=== PATIENT | male | born 1950 | race Caucasian/White ===

== ENCOUNTER → 2021-03-03 14:46 | Outpatient (BNVA) | payer OTHER, SELFPAY | PROVIDERS: Family Provider Family Medicine; PCP Family Medicine; Visit Provider Nurse Practitioner Family | DX: Z20.822 Contact with and (suspected) exposure to COVID-19 (principal) | CPT/HCPCS: 87635 ==

== ENCOUNTER 2021-03-05 13:00 | Outpatient (CLI) | payer OTHER, SELFPAY ==
[2021-03-05 13:07] VITALS: BP 127/74; PULSE 57; RESP 18; TEMP 36.8; O2SAT 95; BMI 25.7
[2021-03-05 13:23] VITALS: BP 128/78; PULSE 56; RESP 18; TEMP 36.6; O2SAT 96
[2021-03-05 14:27] VITALS: BP 124/77; PULSE 55; RESP 16; TEMP 36.7; O2SAT 93
== END 2021-03-05 13:01 | disposition home or self-care (01) ==
LOC: OPS 13:04
PROVIDERS: PCP Family Medicine; Visit Provider Nurse Practitioner Family
DX: U07.1 COVID-19 (principal)
CPT/HCPCS: 96365

== ENCOUNTER 2023-01-10 07:40 | Inpatient (IN) | payer OTHER, SELFPAY ==
[2023-01-10] VITALS (53 sets, daily range): BP systolic 101–172; BP diastolic 52–98; PULSE 44–62; RESP 12–21; TEMP 36.7–37.1; O2SAT 92–100; BMI 25.7
--- NOTE | 2023-01-10 07:47 | XRR_ITS ---
PROCEDURE INFORMATION: Exam: XR Chest Exam date and time: 01/10/2023 8:23 AM Age: 72 years old Clinical indication: Cough and dyspnea; Additional info: Dyspnea/cough TECHNIQUE: Imaging protocol: Radiologic exam of the chest. Views: 1 view. COMPARISON: No relevant prior studies available. FINDINGS: Lungs: There is a 3 mm radiodense nodule in the inferolateral right lung consistent with a calcified granuloma. There is no consolidation. Pleural spaces: There is no pleural effusion or pneumothorax. Heart/Mediastinum: Cardiomediastinal contours are unremarkable. Bones/joints: There is moderate degenerative disease at the left shoulder. XR/XR chest 1V portable [id number] IMPRESSION: No acute findings.
--- NOTE | 2023-01-10 07:47 | CTR_ITS ---
PROCEDURE INFORMATION: Exam: CT Head Without Contrast Exam date and time: 01/10/2023 8:01 AM Age: 72 years old Clinical indication: Stroke-like symptoms; Speech disturbance; Right upper extremity numbness/paresthesia; Additional info: AMS TECHNIQUE: Imaging protocol: Computed tomography of the head without contrast. Radiation optimization: All CT scans at this facility use at least one of these dose optimization techniques: automated exposure control; mA and/or kV adjustment per patient size (includes targeted exams where dose is matched to clinical indication); or iterative reconstruction. Other technique: STROKE PROTOCOL was implemented. REPORTING DATA: Count of CT and Cardiac NM exams in prior 12 months: This patient has received 0 known CTs and 0 known cardiac nuclear medicine studies in the 12 months prior to the current study. COMPARISON: No relevant prior studies available. RADIATION DOSE METRICS: Total DLP (mGy-cm): 1004.68 FINDINGS: Brain: There is mild diffuse cerebral atrophy. There is a 6 mm focal hypodensity in the superior left cerebellar hemisphere consistent with a chronic lacunar infarct. No significant white matter disease is visible. No sign of acute infarction. There is no acute intracranial hemorrhage. Cerebral ventricles: There is no significant ventricular dilation. The basal cisterns are unremarkable. Paranasal sinuses: The paranasal sinuses are clear. Mastoid air cells: The mastoid air cells are clear. Orbital cavities: There is chronic deformity of the left medial orbital wall. Bones/joints: The calvarium is intact. Soft tissues: The visible extracranial soft tissues are unremarkable. CT/CT head wo con* [id number] IMPRESSION: No acute intracranial abnormality. ASSESSMENT: ASPECTS ([place] Stroke Program Early CT Score) is 10.
[2023-01-10 07:56] LABS: Basophils % 0.6 %; Eosinophils # 0.1 10^3/uL (0.0-0.8); Eosinophils % 1.5 %; Hematocrit 45.5 % (37-53); Lymphocytes # 1.9 10^3/uL (0.8-4.8); Lymphocytes % 36.3 %; Mean Corpuscular HGB Conc 33.6 g/dL (30-55); Mean Corpuscular Hemoglobin 32.3 pg (27-33); Mean Platelet Volume 10.1 fL (7.4-10.4); Monocytes # 0.6 10^3/uL (0.2-0.9); Monocytes % 10.7 %; Neutrophils % 50.7 %; Nucleated Red Blood Cells % 0 %; Platelet Count 268 10^3/cmm (157-399); Red Blood Count 4.74 10^6/uL (3.85-5.65); Red Cell Distribution Width 13.1 % (12.1-15.1); White Blood Count 5.32 10^3/uL (3.29-11.43)
--- NOTE | 2023-01-10 07:59 | ED_ITS ---
HPI - Altered Mental Status General: Chief Complaint: Altered Mental Status Stated Complaint: AMS Time Seen by Provider: 01/10/23 07:46 Course Vital Signs: Vital signs: Vital Signs Pulse Rate 52 L 01/10/23 07:40 Blood Pressure 161/81 01/10/23 07:40 Pulse Oximetry 96 01/10/23 07:40 Oxygen Delivery Me thod Room Air 01/10/23 07:40 MDM - Altered Mental Status Lab Data 01/10/23 07:04 01/10/23 07:04 Laboratory Results WBC 5.32 10^3/uL (3.29-11.43) 01/10/23 07:04 RBC 4.74 10^6/uL (3.85-5.65) 01/10/23 07:04 Hgb 15.30 g/dL (11.27-16.99) 01/10/23 07:04 Hct 45.5 % (37-53) 01/10/23 07:04 MCV 96.0 fl (82-101) 01/10/23 07:04 MCH 32.3 pg (27-33) 01/10/23 07:04 MCHC 33.6 g/dL (30-55) 01/10/23 07:04 RDW 13.1 % (12.1-15.1) 01/10/23 07:04 Plt Count 268 10^3/cmm (157-399) 01/10/23 07:04 MPV 10.1 fL (7.4-10.4) 01/10/23 07:04 Neut % (Auto) 50.7 % 01/10/23 07:04 Lymph % (Auto) 36.3 % 01/10/23 07:04 [place] % (Auto) 10.7 % 01/10/23 07:04 Eos % (Auto) 1.5 % 01/10/23 07:04 Baso % (Auto) 0.6 % 01/10/23 07:04 Neut # (Auto) 2.70 10^3/uL (1.8-7.7) 01/10/23 07:04 Lymph # (Auto) 1.9 10^3/uL (0.8-4.8) 01/10/23 07:04 [place] # (Auto) 0.6 10^3/uL (0.2-0.9) 01/10/23 07:04 Eos # (Auto) 0.1 10^3/uL (0.0-0.8) 01/10/23 07:04 Baso # (Auto) 0.0 10^3/uL (0.0-0.1) 01/10/23 07:04 Nucleated RBC % (auto) 0 % 01/10/23 07:04 Nucleated RBCs # 0.0 /100WBC 01/10/23 07:04 Discharge Plan Discharge Condition: Stable Prescriptions: No Action No Known Home Medications Referrals: Lew Burk [Primary Care Provider] - Patient Instructions: Altered Mental Status (ED), Alcohol Intoxication (ED), Benzodiazepine Use Disorder (ED), Concussion (ED), Dementia (ED), Subarachnoid Hemorrhage (GEN), Hyponatremia (ED), Non-diabetic Hypoglycemia (ED), Hypoglycemia in a Person with Diabetes (ED) Coding Level of Care Code ED Rod Greaser for Minoo Luo
--- NOTE | 2023-01-10 08:01 | W.ED.NEUROSD ---
HPI - Neuro Symptoms/Deficit General: Chief Complaint: Altered Mental Status Stated Complaint: AMS Time Seen by Provider: 01/10/23 07:46 Source: patient History of Present Illness: 72-year-old male presents to the emergency room via EMS with a report of altered mental status. When I came to see the patient he is having dysarthria and mild aphasia. He reports that he got up in his normal began his normal morning activities and then be having difficulty with speech around 615. He presented here at 740. He is not on anticoagulants. No recent surgeries. Shortly after entering the room and beginning to evaluate the patient a stroke alert was called based on initial bedside observations. Time: 07:40 Last Observed Normal: 06:15 Location: speech Severity: moderate Quality: weak Relieving factors: none Exacerbating factors: none Context: sudden onset On Anticoagulants: No Associated symptoms: Deny chest pain, cough, diaphoresis, fevers/chills, headache(s), anorexia, malaise, nausea, seizures, short of breath, syncope, tingling, vertigo, vomiting or weakness Treatments Prior to Arrival: none Review of Systems Const: Denies: malaise or diaphoresis Card: Denies: chest pain or syncope Resp: Denies: dyspnea GI: Denies: nausea or vomiting : Denies: dysuria, urinary frequency or urinary urgency Musc: Denies: neck pain or back pain Skin/Breast: Denies: rash Neuro: Denies: headache(s) or vertigo NIH stroke score NIHSS: Level Of Consciousness - 1a: 0 Level Of Consciousness Questions - 1b: Both Correct Level Of Consciousness Commands - 1c: Both Correct Best Gaze - 2: Normal Visual [place] - 3: No Visual Loss Facial Palsy - 4: Normal Motor Arm Right - 5: Drift (Subtle) Motor Arm Left - 5: No Drift Motor Leg Right - 6: Drift (Mild compared to left) Motor Leg Left - 6: No Drift Limb Ataxia - 7: Present In Two Limbs Sensory - 8: Normal Best Language - 9: Mild/Moderate Aphasia Dysarthia - 10: Mild/Moderate Dysarthia Extinction And Inattention - 11: 0 Score: Total Score: 6 Physical Exam Const: COMMON NORMALS: no acute distress GENERAL APPEARANCE: cooperative and comfortable ORIENTATION/CONSCIOUSNESS: Yes awake, Yes oriented to person, Yes oriented to place and Yes oriented to time HENMT: COMMON NORMALS: normocephalic, atraumatic and hearing grossly normal bilaterally HEAD & SCALP: normocephalic and atraumatic Resp: COMMON NORMALS: normal respiratory effort, No retractions, No use of accessory muscles and clear to auscultation bilaterally AUSCULTATION: clear to auscultation bilaterally Cardio: COMMON NORMALS: regular rate, regular rhythm and No murmurs present (Cardio) RATE: regular rate RHYTHM: regular rhythm GI: COMMON NORMALS: Soft to palpation and No hepatosplenomegaly present AUSCULTATION: Yes normoactive bowel sounds PALPATION: Yes Soft to palpation, No Tenderness to palpation present (GI), No Guarding due to palpation present (GI) and Yes No hepatosplenomegaly present Extremity: COMMON NORMALS: normal to inspection, capillary refill normal, no clubbing, cyanosis or edema, no calf tenderness and no pedal edema Neuro: SENSORIUM/ORIENTATION: Yes oriented to person, Yes oriented to place and Yes oriented to time Skin: COMMON NORMALS: no rashes or lesions noted GENERAL SKIN EXAM: no rashes or lesions noted Course Vital Signs: Vital signs: Vital Signs Temperature 98.7 F 01/10/23 08:30 Pulse Rate 59 L 01/10/23 09:00 Respiratory Rate 19 H 01/10/23 09:00 Blood Pressure 153/88 01/10/23 09:00 Pulse Oximetry 96 01/10/23 09:00 Oxygen Delivery Me thod Room Air 01/10/23 07:40 MDM - Neuro Symptoms/Deficit Medical Decision Making CT head negative CTA head and neck done later in the visit was also negative. Patient has no contraindications no recent surgeries no anticoagulants blood pressure adequate. He has a well-defined onset of symptoms time the stroke score is 6. Discussed risks and benefits recommend proceeding with TNKase for acute CVA. Also discussed with Dr. Wild who is on-call for neurology. She concurs and seen patient by telehealth. Patient was treated with TNKase and has begun to improve. Will admit discussed with hospitalist orders written Medical Records I reviewed the patient's medical records. Lab Data I reviewed the patient's lab results. 01/10/23 07:04 01/10/23 07:04 Radiology Impressions Chest X-Ray 01/10/23 07:47 IMPRESSION: No acute findings. Head CT 01/10/23 07:47 IMPRESSION: No acute intracranial abnormality. ASSESSMENT: ASPECTS ([place] Stroke Program Early CT Score) is 10. ADDENDUM: 01/10/23 0821 THIS REPORT CONTAINS FINDINGS THAT MAY BE CRITICAL TO PATIENT CARE. The findings were verbally communicated via telephone conference with ODALIS LOGAN at 8:19 AM REAL ESTATE APPRAISER SUPERVISOR on 01/10/2023. The findings were acknowledged and understood. Head/Neck CTA 01/10/23 08:27 IMPRESSION: No arterial stenosis, occlusion or aneurysm. IMPRESSION: 1. No arterial occlusion or dissection. 2. 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 Normal left dominant vertebral artery. 3. No carotid stenosis. REFERENCES: NASCET CRITERIA. The degree of stenosis in the cervical segment of the internal carotid artery is based on NASCET criteria. Normal is no stenosis. Mild is less than 50% stenosis. Moderate is 50-69% stenosis. Severe is 70% to 99% stenosis. Total occlusion is no detectable patent lumen. ADDENDUM: 01/10/23 09 THIS REPORT CONTAINS FINDINGS THAT MAY BE CRITICAL TO PATIENT CARE. The findings were verbally communicated via telephone conference with ODALIS LOGAN at 9:24 AM REAL ESTATE APPRAISER SUPERVISOR on 01/10/2023. The findings were acknowledged and understood. Laboratory Results WBC 5.32 10^3/uL (3.29-11.43) 01/10/23 07:04 RBC 4.74 10^6/uL (3.85-5.65) 01/10/23 07:04 Hgb 15.30 g/dL (11.27-16.99) 01/10/23 07:04 Hct 45.5 % (37-53) 01/10/23 07:04 MCV 96.0 fl (82-101) 01/10/23 07:04 MCH 32.3 pg (27-33) 01/10/23 07:04 MCHC 33.6 g/dL (30-55) 01/10/23 07:04 RDW 13.1 % (12.1-15.1) 01/10/23 07:04 Plt Count 268 10^3/cmm (157-399) 01/10/23 07:04 MPV 10.1 fL (7.4-10.4) 01/10/23 07:04 Neut % (Auto) 50.7 % 01/10/23 07:04 Lymph % (Auto) 36.3 % 01/10/23 07:04 [place] % (Auto) 10.7 % 01/10/23 07:04 Eos % (Auto) 1.5 % 01/10/23 07:04 Baso % (Auto) 0.6 % 01/10/23 07:04 Neut # (Auto) 2.70 10^3/uL (1.8-7.7) 01/10/23 07:04 Lymph # (Auto) 1.9 10^3/uL (0.8-4.8) 01/10/23 07:04 [place] # (Auto) 0.6 10^3/uL (0.2-0.9) 01/10/23 07:04 Eos # (Auto) 0.1 10^3/uL (0.0-0.8) 01/10/23 07:04 Baso # (Auto) 0.0 10^3/uL (0.0-0.1) 01/10/23 07:04 Nucleated RBC % (auto) 0 % 01/10/23 07:04 Nucleated RBCs # 0.0 /100WBC 01/10/23 07:04 PT 12.30 SECONDS (12.1-14.9) 01/10/23 07:04 INR 0.89 (0.8-1.2) 01/10/23 07:04 APTT 27.9 SECONDS (23.9-36.7) 01/10/23 07:04 Sodium 140 mmol/L (136-145) 01/10/23 07:04 Potassium 4.3 mmol/L (3.5-5.1) 01/10/23 07:04 Chloride 106 mmol/L (98-107) 01/10/23 07:04 Carbon Dioxide 24 mmol/L (22-29) 01/10/23 07:04 Anion Gap 14.3 (5-19) 01/10/23 07:04 BUN 14 mg/dL (8-23) 01/10/23 07:04 Creatinine 1.0 mg/dL (0.7-1.2) 01/10/23 07:04 GFR Calculation Not Reportable 01/10/23 07:04 Glucose 107 mg/dL (65-115) 01/10/23 07:04 POC Glucose 92 mg/dL (70-110) 01/10/23 08:08 Calculated Osmolality 291 mOsm/kg (285-295) 01/10/23 07:04 Calcium 9.0 mg/dL (8.5-10.5) 01/10/23 07:04 Total Bilirubin 1.1 mg/dL (0.15-1.2) 01/10/23 07:04 AST 19 U/L (0-40) 01/10/23 07:04 ALT 13 U/L (0-41) 01/10/23 07:04 Alkaline Phosphatase 63 U/L (40-130) 01/10/23 07:04 Troponin T Baseline 7 ng/L (0-15) 01/10/23 07:04 Troponin T 120 Minute 8.55 ng/L (0-15) 01/10/23 09:02 Total Protein 7.0 g/dL (6.6-8.7) 01/10/23 07:04 Albumin 4.1 g/dL (3.5-5.2) 01/10/23 07:04 Globulin 2.9 g/dL (1.3-4.6) 01/10/23 07:04 Urine Color Yellow (Yellow) 01/10/23 09:24 Urine Appearance Clear (CLEAR) 01/10/23 09:24 Urine pH 7 (5-7) 01/10/23 09:24 Ur Specific [place] 1.000 (1.005-1.030) L 01/10/23 09:24 Urine Protein Neg (Negative) 01/10/23 09:24 Urine Glucose (UA) Norm (Normal) 01/10/23 09:24 Urine Ketones Negative (Negative) 01/10/23 09:24 Urine Blood Neg (Negative) 01/10/23 09:24 Urine Nitrate Negative (Negative) 01/10/23 09:24 Urine Bilirubin Neg (Negative) 01/10/23 09:24 Urine Urobilinogen Norm mg/dL (Negative) 01/10/23 09:24 Ur Leukocyte Esterase Negative (Negative) 01/10/23 09:24 Urine Opiates Screen Negative ng/mL (Negative) 01/10/23 09:24 Ur Barbiturates Screen Negative ng/mL (Negative) 01/10/23 09:24 Ur Phencyclidine Scrn Negative ng/mL (Negative) 01/10/23 09:24 Ur Amphetamines Screen Negative ng/mL (Negative) 01/10/23 09:24 U Benzodiazepines Scrn Negative ng/mL (Negative) 01/10/23 09:24 Urine Cocaine Screen Negative ng/mL (Negative) 01/10/23 09:24 U Marijuana (THC) Screen Negative ng/mL (Negative) 01/10/23 09:24 All radiology interpretation(s) finalized by discharge Discharge Plan Discharge Patient Disposition: Admitted As Inpatient Clinical Impression: Acute CVA (cerebrovascular accident) Condition: Stable Prescriptions: No Action Refresh Optive 0.5-0.9 % Drops 2 drp ophthalmic (eye) QAM Vitamin D3 125 mcg (5,000 unit) Tablet 125 mcg PO QAM Referrals: Lew Burk [Primary Care Provider] - Patient Instructions: Hyponatremia (ED), Benzodiazepine Use Disorder (ED), Dementia (ED), Non-diabetic Hypoglycemia (ED), Hypoglycemia in a Person with Diabetes (ED), Concussion (ED), Alcohol Intoxication (ED), Subarachnoid Hemorrhage (GEN), Altered Mental Status (ED) Coding Level of Care Code ED Biological Technician for Minoo Luo
--- NOTE | 2023-01-10 08:08 | PC.PHAR ---
pt states he takes care of his own meds-pt states [facility]-pt states he only uses otc refresh optive eye drops in the am and then takes a vitamin d3 5,000 units qam-no meds show on ext med history faxed [facility]
[2023-01-10 08:12] LABS: Glucose Point of Care 92 mg/dL (70-110)
[2023-01-10 08:20] LABS: Alanine Aminotransferase 13 U/L (0-41); Albumin Level 4.1 g/dL (3.5-5.2); Alkaline Phosphatase 63 U/L (40-130); Blood Urea Nitrogen 14 mg/dL (8-23); Carbon Dioxide 24 mmol/L (22-29); Chloride 106 mmol/L (98-107); Globulin 2.9 g/dL (1.3-4.6); Glucose 107 mg/dL (65-115); Osmolality Calculated 291 mOsm/kg (285-295); Sodium 140 mmol/L (136-145); Total Bilirubin 1.1 mg/dL (0.15-1.2); Troponin(5th) Baseline 7 ng/L (0-15)
[2023-01-10] MEDS: tenecteplase 50mg Kit (STROKE) 21 MG IVP (08:24)
[2023-01-10 08:25] LABS: INR 0.89 (0.8-1.2)
[2023-01-10 08:26] LABS: Partial Thromboplastin Time 27.9 SECONDS (23.9-36.7)
--- NOTE | 2023-01-10 08:27 | CTR_ITS ---
PROCEDURE INFORMATION: Exam: CTA Head With Contrast, Arteriography Exam date and time: 01/10/2023 8:45 AM Age: 72 years old Clinical indication: Stroke-like symptoms; Speech disturbance; RT upper extremity weakness; Additional info: Acute CVA TECHNIQUE: Imaging protocol: Computed tomographic angiography of the head with contrast. Exam focused on the arteries. 3D rendering (Not supervised by radiologist): MIP and/or 3D reconstructed images were created by the technologist. Radiation optimization: All CT scans at this facility use at least one of these dose optimization techniques: automated exposure control; mA and/or kV adjustment per patient size (includes targeted exams where dose is matched to clinical indication); or iterative reconstruction. Contrast material: OMNI 350; Contrast volume: 100 ml; Contrast route: INTRAVENOUS (IV); REPORTING DATA: Count of CT and Cardiac NM exams in prior 12 months: This patient has received 0 known CTs and 0 known cardiac nuclear medicine studies in the 12 months prior to the current study. COMPARISON: CT head wo con* [id number] 01/10/2023 8:01 AM RADIATION DOSE METRICS: Total DLP (mGy-cm): 556.51 FINDINGS: ANTERIOR CIRCULATION: Right internal carotid artery: Intracranial segment is patent with no significant stenosis. No aneurysm. Right middle cerebral artery: No occlusion or significant stenosis. No aneurysm. Right anterior cerebral artery: No occlusion or significant stenosis. No aneurysm. Left internal carotid artery: Intracranial segment is patent with no significant stenosis. No aneurysm. Left middle cerebral artery: No occlusion or significant stenosis. No aneurysm. Left anterior cerebral artery: No occlusion or significant stenosis. No aneurysm. POSTERIOR CIRCULATION: Right vertebral artery: Right vertebral artery is hypoplastic. No occlusion or significant stenosis. No aneurysm. Left vertebral artery: No occlusion or significant stenosis. No aneurysm. Basilar artery: No occlusion or significant stenosis. No aneurysm. Right posterior cerebral artery: No occlusion or significant stenosis. No aneurysm. Left posterior cerebral artery: No occlusion or significant stenosis. No aneurysm. Right posterior communicating artery: Right posterior communicating artery is patent. Left posterior communicating artery: Left posterior communicating artery is very small but patent. Veins: Dural venous sinuses are patent. Brain: There is no significant mass effect or midline shift. There is no pathologic enhancement of the brain parenchyma. Cerebral ventricles: There is no significant ventricular dilation. The basal cisterns are unremarkable. Orbital cavities: Chronic depression of the left medial orbital wall. Mastoid air cells: The mastoid air cells are clear. Paranasal sinuses: The paranasal sinuses are clear. Bones/joints: The calvarium is intact. Soft tissues: The visible extracranial soft tissues are unremarkable. PROCEDURE INFORMATION: Exam: CTA Neck With Contrast Exam date and time: 01/10/2023 8:45 AM Age: 72 years old Clinical indication: Stroke-like symptoms; Speech disturbance; RT upper extremity weakness; Additional info: Acute CVA TECHNIQUE: Imaging protocol: Computed tomographic angiography of the neck with contrast. Exam focused on the cervical segments of the vasculature. 3D rendering (Not supervised by radiologist): MIP and/or 3D reconstructed images were created by the technologist. Radiation optimization: All CT scans at this facility use at least one of these dose optimization techniques: automated exposure control; mA and/or kV adjustment per patient size (includes targeted exams where dose is matched to clinical indication); or iterative reconstruction. Contrast material: OMNI 350; Contrast volume: 100 ml; Contrast route: INTRAVENOUS (IV); REPORTING DATA: Count of CT and Cardiac NM exams in prior 12 months: This patient has received 0 known CTs and 0 known cardiac nuclear medicine studies in the 12 months prior to the current study. COMPARISON: CT head wo con* [id number] 01/10/2023 8:01 AM RADIATION DOSE METRICS: Total DLP (mGy-cm): 556.51 FINDINGS: Right common carotid artery: No stenosis. No dissection or occlusion. Right internal carotid artery: There is mild atherosclerotic disease at the origin of the right internal carotid artery without stenosis. Right external carotid artery: No occlusion or stenosis of the origin. Left common carotid artery: No stenosis. No dissection or occlusion. Left internal carotid artery: There is mild atherosclerotic disease at the origin of the left internal carotid artery without stenosis. Left external carotid artery: No occlusion or stenosis of the origin. Right vertebral artery: Focal calcific plaque at the origin of the relatively hypoplastic right vertebral artery with possible hemodynamically significant stenosis. Assessment of stenosis is limited by the small size of the vessel. Left vertebral artery: Left vertebral artery is dominant and demonstrates no stenosis. Soft tissues: Soft tissues in the neck and thoracic inlet are unremarkable. Bones/joints: There is moderate degenerative disc disease in the cervical spine. Lungs: Lung apices are clear. CT/CT angio headneck* [id number] IMPRESSION: No arterial stenosis, occlusion or aneurysm. IMPRESSION: 1. No arterial occlusion or dissection. 2. 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 Normal left dominant vertebral artery. 3. No carotid stenosis. REFERENCES: NASCET CRITERIA. The degree of stenosis in the cervical segment of the internal carotid artery is based on NASCET criteria. Normal is no stenosis. Mild is less than 50% stenosis. Moderate is 50-69% stenosis. Severe is 70% to 99% stenosis. Total occlusion is no detectable patent lumen.
[2023-01-10 08:28] LABS: Anion Gap 14.3 (5-19); Aspartate Amino Transferase 19 U/L (0-40); Potassium 4.3 mmol/L (3.5-5.1)
[2023-01-10] MEDS: iohexol 350 mg/mL 500 mL Btl (per mL) IV (08:54)
--- NOTE | 2023-01-10 09:20 | ECG_ITS ---
[facility] Test Date: 2023-01-10 Pat Name: Pawel Liu Department: Room: Gender: Male Amf Mechanic: : 1950 Requested By: Serafin Villegas Order Number: [id number] Leida MD: Taco Bermeo M.D. Measurements Intervals [place] Rate: 48 P: 43 NC: 173 QRS: 20 QRSD: 110 T: 48 QT: 429 QTc: 385 Interpretive Statements SINUS BRADYCARDIA No previous ECG available for comparison Electronically Signed On 01-10-2023 22:07:00 FLOOR COVERER by Taco Bermeo M.D. [id number]
[2023-01-10 09:27] LABS: Add Urine Microscopic? NO; Charge for UA Resulting for Rev
[2023-01-10 09:30] LABS: Bilirubin Urine Neg (Negative); Blood Urine Neg (Negative); Glucose Urine UA Norm (Normal); Ketones Urine Negative (Negative); Leukocyte Esterase Urine Negative (Negative); Nitrate Urine Negative (Negative); Protein Urine Neg (Negative); Urine Appearance Clear (CLEAR); Urine Color Yellow (Yellow); Urobilinogen Urine Norm (Negative); pH Urine 7 (5-7)
[2023-01-10 09:37] LABS: Amphetamines Screen Urine Negative (Negative); Barbiturates Screen Urine Negative (Negative); Benzodiazepines Screen Urine Negative (Negative); Cocaine Screen Urine Negative (Negative); Opiate Screen Urine Negative (Negative); PCP Screen Urine Negative (Negative); THC Screen Urine Negative (Negative)
[2023-01-10 10:05] LABS: Troponin 5 2HR 8.55 ng/L (0-15); Troponin 5 2HR Delta 1.55 ABS# (0-10)
--- NOTE | 2023-01-10 10:32 | ECG_ITS ---
[facility] Test Date: 2023-01-10 Pat Name: Pawel Liu Department: Room: ICU06 Gender: Male Cotton Opener: : 1950 Requested By: Serafin Villegas Order Number: [id number] Leida MD: Taco Bermeo M.D. Measurements Intervals [place] Rate: 44 P: 66 [place]: 204 QRS: 22 QRSD: 115 T: 45 QT: 445 QTc: 383 Interpretive Statements SINUS BRADYCARDIA MODERATE INTRAVENTRICULAR CONDUCTION DELAY [110+ ms QRS DURATION] Compared to ECG 01/10/2023 09:20:37 Intraventricular conduction delay now present Electronically Signed On 01-10-2023 22:21:12 METAL WIRE COATING OPERATOR by Taco Bermeo M.D. [id number]
--- NOTE | 2023-01-10 10:35 | USCV_ITS ---
Pawel Liu Age: 72 Gender: M : 1950 Exam Date: 01/10/2023 14:37 Ordering Phys: Cb Beaulieu MD Technologist: Wayne Momin Exam Location: [facility] [place] Indication: CVA BP: 134 / 76 HR: 46 Rhythm: Sinus Technical Quality: Adequate MEASUREMENTS (Male / Female) Normal Values 2D ECHO LVOT Diameter 2.0 cm LV Ejection Fraction MOD 2C 57.7 % LV Ejection Fraction 2C AL 57.9 % LA Diameter 3.2 cm LA Width 3.4 cm LA Height 4.2 cm RA Width 3.7 cm RA Height 4.2 cm Aorta at Sinotubular Diameter 3.2 cm M-MODE Aortic Annulus Diameter 3.1 cm LA Ao Ratio MM 1.0 DOPPLER AV Peak Velocity 108.0 cm/s LVOT Peak Velocity 99.0 cm/s AV Area Cont Eq vti 3.1 cm squared AV Area Cont Eq pk 3.0 cm squared MV Peak Velocity 74.0 cm/s MV Area PHT 3.1 cm squared Mitral E to A Ratio 0.5 MV E' Velocity 20.0 cm/s Mitral E to MV E' Ratio 5.8 Mitral E to LV E' Lateral Ratio 6.7 Mitral E to LV E' Septal Ratio 5.2 TR Peak Velocity 306.4 cm/s TR Peak Gradient 37.6 mmHg TR Mean Velocity 234.8 cm/s TR Mean Gradient 25.1 mmHg TR Velocity Time Integral 87.2 cm Right Atrial Pressure 8.0 mmHg Pulmonary Artery Systolic Pressu 45.6 mmHg PV Peak Velocity 79.7 cm/s RV Acceleration Time 0.1 s RV Ejection Time 0.3 s RV AcT/ET 0.4 FINDINGS Left Ventricle Normal left ventricular size and systolic function, EF 61 %. No regional wall motion abnormalities. Right Ventricle The right ventricle is normal in size and function. Right Atrium The right atrium is normal in size. Left Atrium The left atrium is normal in size. Mitral Valve No gross abnormalities noted Aortic Valve Mild aortic valve regurgitation. Tricuspid Valve Trace tricuspid valve regurgitation. Estimated pulmonary artery peak systolic pressure 46 mm of Hg. Pulmonic Valve No gross abnormalities noted Pericardium Normal pericardium without effusion. Aorta Normal ascending aorta dimension. IVC The inferior vena cava appears normal. CONCLUSIONS Normal left ventricular size and systolic function, EF 61 %. No regional wall motion abnormalities. Mild aortic valve regurgitation. Trace tricuspid valve regurgitation. Estimated pulmonary artery peak systolic pressure 46 mm of Hg. There is no pericardial effusion. There are no intracardiac masses. No similar previous studies are available for comparison Dr Taco Bermeo MD FAC (Electronically Signed) Final Date: 10 January 2023 21:07 S
[2023-01-10 11:08] LABS: Estmated Average Glucose 108; Hemoglobin A1C 5.4 % (4.0-6.0)
[2023-01-10] MEDS: sodium chloride 0.9% 1,000 ML 100 ML IV ×2 (11:14→21:28)
[2023-01-10] MEDS: pantoprazole 40 mg SDV IVP (11:14)
[2023-01-10 11:33] LABS: NT Pro B Type Natriuretic Pept 36 pg/mL (0-125)
[2023-01-10 11:34] LABS: Chol HDL Ratio 4.16 mg/dL (1.0-5.00); Cholesterol 262 mg/dL (0-200); HDL Cholesterol 63 mg/dL (60-100); LDL Cholesterol Calculated 182 mg/dL (50-129); LDL HDL Ratio 2.89 RATIO (0.00-3.22); Thyroid Stimulating Hormone 4.09 uIU/mL (0.27-4.20); Triglycerides 84 mg/dL (0-150)
--- NOTE | 2023-01-10 12:43 | P.HP_ITS ---
Providers/Chief Complaint Admitting Physician: Cb Beaulieu MD Primary Care Provider: Lew Burk Chief Complaint: AMS History of Present Illness Pawel Liu is a 72 year old male with history of spontaneous pneumothorax, history of chewing tobacco use, who presents [facility] for concerns for CVA, status post thrombolytic, seen in ICU, currently has a minimal right facial droop, minimal slurring of his words, no word finding difficulty, no visual deficits, no focal weakness, alert oriented x4, following all commands, told me that when he woke up this morning he was not feeling well, he felt Foggy, he had clumsiness of his right hand, he is right-handed, he felt unsteady on his feet, denies falling, denies stumbling, in the emergency room, he was fo und to have dysarthria, mild aphasia, CT head within normal limits, CTA head and neck no large vessel occlusion, no current indications to thrombolytic, and a stroke scale was 6, sent received thrombolytics, neurology saw patient, currently in ICU, is at bedside he is denying any headache, blurry vision, no nausea, no vomiting, Review of Systems Const: Denies: fever(s) or chills Eyes: Denies: change in vision Card: Denies: chest pain Resp: Denies: dyspnea GI: Denies: abdominal pain : Denies: flank pain Musc: Denies: neck pain or back pain Neuro: Denies: headache(s) Medications/Allergies Home Medications Medication Instructions Recorded Confirmed Last Taken Type carboxymethylcellulose 0.5 2 drp ophthalmic (eye) QAM 01/10/23 01/10/23 Unknown History %-glycerin 0.9 % eye drops (Refresh Optive) cholecalciferol (vitamin D3) 125 125 mcg PO QAM 01/10/23 01/10/23 Unknown History mcg (5,000 unit) tablet (Vitamin D3) Allergies Allergy/AdvReac Type Severity Reaction Status Date / Time Matjhwg-LID-NqC Reductase Allergy Intermediate make me Verified 01/10/23 08:08 Inhibitor feel funny PFSH Acute PFSH: Medical History (Updated 01/10/23 @ 12:50 by Cb Beaulieu MD) No pertinent past medical history Surgical History (Updated 01/10/23 @ 12:45 by Cb Beaulieu MD) History of chest tube placement Family History (Updated 01/10/23 @ 12:46 by Cb Beaulieu MD) Brother Colon cancer Social History (Updated 01/10/23 @ 12:46 by Cb Beaulieu MD) Smoking and tobacco/nicotine status: never used tobacco/nicotine Alcohol intake: never Substance/Drug Use: never Vitals/I&O/Wt Last Vital Signs Temp 98.7 F 01/10/23 08:30 Pulse 52 L 01/10/23 12:15 Resp 14 01/10/23 12:15 BP 134/70 01/10/23 12:15 Pulse Ox 96 01/10/23 12:15 O2 Del Method Room Air 01/10/23 11:09 Weight last 48 hrs Weight 83.915 kg Weight 83.915 kg Physical Exam Const: COMMON NORMALS: no acute distress and patient oriented x3 GENERAL APPEARANCE: cooperative, well kempt and well developed HENMT: COMMON NORMALS: normocephalic, Normal external nose present and oropharynx normal HEAD & SCALP: normocephalic FACE & SINUS: normal facial exam NOSE: Normal external nose present MOUTH: Normal oral and palatal mucosa present THROAT: posterior oropharynx normal Eye: COMMON NORMALS: Equal, round and reactive pupils present, EOMs intact bilaterally, conjunctivae normal and no scleral icterus CONJUNCTIVA: Yes conjunctivae normal PUPIL: Yes Equal, round and reactive pupils present Neck/C-Spine: COMMON NORMALS: full ROM, no lymphadenopathy, no JVD, Thyroid normal and No carotid bruits THYROID: Thyroid normal Lymph: LYMPHATIC: no lymphadenopathy noted Chest: COMMONS NORMALS: normal inspection of the chest Resp: COMMON NORMALS: normal respiratory effort, No retractions, No use of accessory muscles and clear to auscultation bilaterally AUSCULTATION: clear to auscultation bilaterally Cardio: COMMON NORMALS: regular rate, regular rhythm, S1 normal heart sound present, S2 normal heart sound present, No murmurs present (Cardio) and Peripheral pulses 2+ throughout RATE: regular rate RHYTHM: regular rhythm HEART SOUNDS: S1 normal heart sound present and S2 normal heart sound present PERIPHERAL PULSES: Peripheral pulses 2+ throughout GI: COMMON NORMALS: Normal to inspection, nondistended, normoactive bowel sounds present, Soft to palpation and non-tender : BLADDER/KIDNEY EXAM: Yes no CVA tenderness Back/Pelvis: COMMON NORMALS: no CVA tenderness Extremity: COMMON NORMALS: normal to inspection, full ROM, capillary refill normal, no calf tenderness and no pedal edema Neuro: COMMON NORMALS: patient oriented x3, CN's II-XII intact bilaterally, moves all extremities, no focal motor deficits and no sensory deficits noted MENINGEAL SIGNS: Yes no meningeal signs OTHER: Mild right facial droop, mild slurring of his words, no word finding difficulty, josyez-fo-ogwm, wjbe-vo-vvcg intact, bilateral upper extremity strength equal, bilateral extremity strength equal Psych: COMMON NORMALS: mental status grossly normal, Normal thought process present, cooperative and speech normal APPEARANCE: Yes well kempt SPEECH: Yes normal speech THOUGHT PROCESS: Normal thought process present Skin: COMMON NORMALS: turgor normal and no jaundice GENERAL SKIN EXAM: turgor normal Data 01/10/23 07:04 01/10/23 07:04 A&P Assessment and plan (1) Acute CVA (cerebrovascular accident): (2) tPA adm status 24 hr NEUROSCIENCE DIRECTOR NA: Plan Acute CVA, NIH stroke scale 6 on admission, within window for thrombolytic, status post thrombolytic therapy Head CT CT/CT head wo con* [id number] IMPRESSION: No acute intracranial abnormality. ? CT head and neck CT/CT angio headneck* [id number] IMPRESSION: No arterial stenosis, occlusion or aneurysm. ? ? IMPRESSION: 1. ? No arterial occlusion or dissection. 2. ? 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 Normal left dominant vertebral artery. 3. ? No carotid stenosis. ? Plan, ? Monitor in ICU, ? Monitor for worsening symptomatology if so will do CT head, ? Repeat CT head in 24 hours, ? In 24 hours we will start aspirin, ? Patient has statin allergies ? Allow for blood pressure monitoring, will treat if systolic rhythm 180 or diastolic greater than 105, ? Cardiac echo, ? TSH, A1c, lipid panel, ? Telemetry monitoring ? Neurology consulted ? PT OT, speech therapy eval ? Full code, ? SCDs for DVT prophylaxis start Lovenox 24 hours Attestations Medical Necessity Statement*: Patient requires hospitalization for acute CVA, status post thrombolytic, inpatient, greater than 2 midnights Diagnoses Acute CVA (cerebrovascular accident) I63.9 tPA adm status 24 hr NEUROSCIENCE DIRECTOR NA Z92.82
[2023-01-10 13:39] LABS: Troponin 5 6HR 8.76 ng/L (0-15); Troponin 5 6HR Delta 1.76 ng/L (0-12)
--- NOTE | 2023-01-10 13:47 | ECG_ITS ---
[facility] Test Date: 2023-01-10 Pat Name: Pawel Liu Department: Room: ICU06 Gender: Male Stand Up Forklift Operator: : [id number] Requested By: Serafin Villegas Order Number: [id number] Leida MD: Taco Bermeo M.D. Measurements Intervals [place] Rate: 51 P: 51 RI: 204 QRS: 35 QRSD: 112 T: 29 QT: 418 QTc: 388 Interpretive Statements SINUS BRADYCARDIA MODERATE INTRAVENTRICULAR CONDUCTION DELAY [110+ ms QRS DURATION] NONSPECIFIC T-WAVE ABNORMALITY Compared to ECG 01/10/2023 10:32:11 T-wave abnormality now present Electronically Signed On 01-10-2023 22:21:18 PAINTER DECORATOR by Taco Bermeo M.D. [id number]
--- NOTE | 2023-01-10 16:18 | PC.NURSE ---
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
[2023-01-11] VITALS (56 sets, daily range): BP systolic 101–139; BP diastolic 52–79; PULSE 42–63; RESP 10–19; TEMP 36.4–37; O2SAT 91–97
[2023-01-11 05:32] LABS: Basophils % 0.4 %; Eosinophils # 0.1 10^3/uL (0.0-0.8); Eosinophils % 2.1 %; Hematocrit 40.9 % (37-53); Lymphocytes # 2.1 10^3/uL (0.8-4.8); Lymphocytes % 30.4 %; Mean Corpuscular HGB Conc 32.5 g/dL (30-55); Mean Corpuscular Hemoglobin 31.4 pg (27-33); Mean Corpuscular Volume 96.7 fl (82-101); Monocytes # 0.8 10^3/uL (0.2-0.9); Monocytes % 11.2 %; Neutrophils # 3.78 10^3/uL (1.8-7.7); Neutrophils % 55.6 %; Nucleated Red Blood Cells % 0 %; Platelet Count 233 10^3/cmm (157-399); Red Blood Count 4.23 10^6/uL (3.85-5.65); Red Cell Distribution Width 13.2 % (12.1-15.1)
[2023-01-11 05:43] LABS: Fibrinogen 237 mg/dL (174-498)
[2023-01-11 05:51] LABS: Alanine Aminotransferase 10 U/L (0-41); Albumin Level 3.5 g/dL (3.5-5.2); Alkaline Phosphatase 51 U/L (40-130); Anion Gap 13.1 (5-19); Aspartate Amino Transferase 13 U/L (0-40); Blood Urea Nitrogen 13 mg/dL (8-23); Calcium 8.4 mg/dL (8.5-10.5); Carbon Dioxide 22 mmol/L (22-29); Chloride 110 mmol/L (98-107); Globulin 2.1 g/dL (1.3-4.6); Glucose 97 mg/dL (65-115); Magnesium 2.1 mg/dL (1.7-2.3); Osmolality Calculated 292 mOsm/kg (285-295); Phosphorus 2.8 mg/dL (2.5-4.5); Potassium 4.1 mmol/L (3.5-5.1); Sodium 141 mmol/L (136-145); Total Bilirubin 0.8 mg/dL (0.15-1.2); Total Protein 5.6 g/dL (6.6-8.7)
[2023-01-11 05:57] LABS: Estmated Average Glucose 105; Hemoglobin A1C 5.3 % (4.0-6.0)
[2023-01-11 06:00] LABS: Cholesterol 216 mg/dL (0-200); HDL Cholesterol 48 mg/dL (60-100); LDL Cholesterol Calculated 154 mg/dL (50-129); LDL HDL Ratio 3.21 RATIO (0.00-3.22); Triglycerides 72 mg/dL (0-150)
[2023-01-11] MEDS: sodium chloride 0.9% 1,000 ML 100 ML IV (06:19)
--- NOTE | 2023-01-11 08:13 | P.PNCC_ITS ---
Stroke Alert Activation ED Arrival Date: 01/10/23 ED Arrival Time: 07:40 ED Physican at Bedside: 07:46 Last Known Normal/at Baseline: 1-2 hours ago Other Last Known Well Infomation: He was brought by EMS with a complaint of altered mental status. Dr. Jarrell saw the patient promptly and discovered that he had expressive aphasia and right-sided weakness. His stroke scale score was 6 and he was taken promptly to CAT scan. Stroke alert was called as soon as he was seen by Dr. Sims and I returned the call and spoke with Dr. Sims. We reviewed his normal CAT scan, his blood pressure and the fact that he was not on anticoagulants. We agreed that the patient should receive TNK without delay. The top inventory control executive had no residual battery life and so the despatch clerk plugged in the battery and called me back 15 minutes later. That was approximately 15 minutes after he received TNK. By then the patient exhibited word searching but had no drift of the right arm, normal gaze, maybe mild dysarthria. His word searching was not apparent on repetition but it was apparent as he was telling his story of onset of his symptoms. He woke up without any symptoms and was going about his day when he suddenly started feeling dizzy, lightheaded and his right side was not working properly. That was around 615. He called the ambulance or his did and arrived at our emergency department an hour and 25 minutes after onset of symptoms. Stroke Alert Activated by: Dr. Sims Stroke Alert Activation Time: :46 Stroke MD @ Bedside Time: 07:47 NIH Stroke Scale Time: 08:05 NIH stroke score NIHSS: Level Of Consciousness - 1a: 0 Level Of Consciousness Questions - 1b: Both Correct Level Of Consciousness Commands - 1c: Both Correct Best Gaze - 2: Normal Visual Wilcox - 3: No Visual Loss Facial Palsy - 4: Minor Paralysis Motor Arm Right - 5: No Drift Motor Arm Left - 5: No Drift Motor Leg Right - 6: No Drift Motor Leg Left - 6: No Drift Limb Ataxia - 7: Absent Sensory - 8: Normal Best Language - 9: Mild/Moderate Aphasia Dysarthia - 10: Mild/Moderate Dysarthia Extinction And Inattention - 11: 0 Score: Total Score: 3 Stroke Alert Data/Treatment Time to CT of Head: :46 CT Results Time: 08:19 CT Impression: Old left cerebellar lacunar stroke. 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 No intracranial stenosis. tPA Started Date: 01/10/23 tPA Started Time: tPA Started - Time: 08:42 tPA Admin Prior to Arrival: No Patient & Family Educated on: Cause of Stroke, Risk Factors, Treament Plan, Prognosis and tPA Risks/Benefits (TNK) Standardized Stroke Orders Used: Yes Critical Care Time Critical Care Time: 30 - 74 mins A&P Assessment and plan (1) Left acute arterial ischemic stroke, MCA (middle cerebral artery): The patient presented with symptoms consistent with left middle cerebral artery stroke. He was treated with TNK within 1 hour of arrival. He has a history of being unable to tolerate statins as they made him feel exhausted and so we will not be able to use a statin. He should be started on dual antiplatelet therapy within 24 hours of treatment and continue overlap 3 weeks followed by aspirin monotherapy. He needs to have prolonged monitoring to look for atrial fibrillation, particularly since he has an old lacunar stroke in the left cerebellum. I took time to answer questions for the patient and his . At the time that I saw him following TNK bolus he was already improving but retained residual expressive difficulty. Signs and symptoms conforming to left middle cerebral artery distribution but no signs of carotid stenosis by CTA. Coding Level of Care Code Acute Code for Minoo Luo Diagnoses Left acute arterial ischemic stroke, MCA (middle cerebral artery) I63.512
--- NOTE | 2023-01-11 09:00 | CT_ITS ---
WS: [id number] CT HEAD NONCONTRAST HISTORY: s/p tpa TECHNIQUE: Contiguous axial imaging performed through the brain in 2.5 mm imaging. Bone and soft tiss ue windows. Sagittal and coronal reformats reviewed. All CT scans at [facility] use at least one of these dose optimization techniques: automated exposure control; mA and/or kV adjustment per pa tient size (includes targeted exams where dose is matched to clinical indication); or iterative recon struction. DLP: 1061.95 mGy.cm COMPARISON: 01/10/2023 No acute intracranial hemorrhage, midline shift or mass effect. Mild atrophy and mild small vessel ischemic disease. Small lacunar infarct in the LEFT cerebellum. Ventricles: Normal size with no hydrocephalus. No inferior displacement of the cerebellar tonsils. Paranasal sinuses: As visualized are clear. Mastoid air cells: Well pneumatized. Calvarium and scalp: Skull is intact with no soft tissue edema or swelling. IMPRESSION: 1. No acute intracranial hemorrhage or edema. 2. Stable mild atrophy and prior LEFT cerebellar lacunar infarct.
[2023-01-11] MEDS: pantoprazole 40 mg SDV IVP (11:21)
--- NOTE | 2023-01-11 12:26 | P.DS_ITS ---
Discharge Providers Date of Admission: 01/10/23 09:36 Date of Discharge: January 11, 2023 Attending Provider at Admission: Cb Beaulieu MD Attending Provider at Discharge: Cb Beaulieu MD Primary Care Provider: Lew Burk Diagnoses at Discharge Discharge Diagnosis (1) Left acute arterial ischemic stroke, MCA (middle cerebral artery): Status: Acute Reason for Visit Reason for Visit: [facility] Hospital Course Hospital Course Pawel Liu is a 72 year old male with history of spontaneous pneumothorax, history of chewing tobacco use, who presents [facility] for concerns for CVA, status post thrombolytic, seen in ICU, currently has a minimal right facial droop, minimal slurring of his words, no word finding difficulty, no visual deficits, no focal weakness, alert oriented x4, following all commands,? 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 I have discharged on aspirin 81 mg daily, please use that indefinitely, ? I discharged on Plavix 75 mg once daily, for 3 weeks stop thereafter, ? If you develop bloody or black stools please go to emergency room, ? Please speak to your primary care provider on possible Praluent or Repatha ? You can also talk to your primary care provider about GLP-1 analogs such as Ozempic ? Please wear event monitor as prescribed ? Please follow-up with neurology in 1 week, ? If you have any strokelike symptoms please go to emergency room, ? I have discharged you on clonidine 0.1 mg twice daily as needed, for systolic blood pressure greater than 150 or diastolic greater than 90, next?please follow-up with primary care provider for recheck blood pressure Patient was admitted to [facility] for acute CVA, and a stroke scale 6, within the thrombolytic window, status post thrombolytic, monitor in ICU, CTA head and neck, no acute findings, CT head within normal limits, monitored as inpatient, overall patient clinically improved, back to baseline no focal neurologic deficits, no word finding difficulty, no slurring of his words, no visual deficits, ambulating without significant symptomatology, no swallowing difficulty, NIH stroke scale 0, no significant hypertensive episodes, no arrhythmia episodes, repeat CT head showed stable mild atrophy and prior left cerebellar lacunar infarct. On discharge aspirin 81 mg indefinitely, Plavix 75 mg once daily for 3 weeks, if any recurrent strokelike symptoms please call [phone], if any blood or black stools please come to the emergency room Patient has a statin intolerance, follow-up with primary care provider about discussion of Repatha For hypertensive episodes, discharge him on clonidine as needed, as per parameters systolic to the 150 or diastolic greater than 90, follow blood pressure as outpatient twice daily follow-up with primary care provider with blood pressure results, I have also discharge him with an event monitor, follow-up with cardiology in the month, Follow-up with neurology as outpatient Physical Exam Const: COMMON NORMALS: no acute distress and patient oriented x3 Resp: COMMON NORMALS: normal respiratory effort, No retractions, No use of accessory muscles and clear to auscultation bilaterally AUSCULTATION: clear to auscultation bilaterally Cardio: COMMON NORMALS: regular rate, regular rhythm, S1 normal heart sound present and S2 normal heart sound present RATE: regular rate RHYTHM: regular rhythm HEART SOUNDS: S1 normal heart sound present and S2 normal heart sound present GI: COMMON NORMALS: Normal to inspection, nondistended, normoactive bowel sounds present and non-tender Extremity: COMMON NORMALS: no pedal edema Neuro: COMMON NORMALS: patient oriented x3, CN's II-XII intact bilaterally, moves all extremities, no focal motor deficits and no sensory deficits noted Psych: COMMON NORMALS: mental status grossly normal Discharge Data Studies Completed and Pending Completed Studies During Hospitalization Category Date Time Status CT head wo con* [id number] Routine Cat Scan 01/11/23 09:[address] head wo con* [id number] Stat Cat Scan 01/10/23 07:47 Completed CTA head neck [CT angio headneck* [id number]] Stat Cat Scan 01/10/23 08:27 Completed XR chest 1V portable [id number] Stat Exams 01/10/23 07:47 Completed CV. echo complete* [id number] Routine Ultrasound 01/10/23 10:35 Completed Pending at discharge Category Date Time Status Complete Blood Count w/Auto AM LABS Lab 01/12/23 04:00 Ordered Complete Blood Count w/Auto AM LABS Lab 01/13/23 04:00 Ordered Comprehensive Metabolic Panel AM LABS Lab 01/12/23 04:00 Ordered Comprehensive Metabolic Panel AM LABS Lab 01/13/23 04:00 Ordered Magnesium AM LABS Lab 01/12/23 04:00 Ordered Magnesium AM LABS Lab 01/13/23 04:00 Ordered Phosphorus AM LABS Lab 01/12/23 04:00 Ordered Phosphorus AM LABS Lab 01/13/23 04:00 Ordered Radiology Impressions Chest X-Ray 01/10/23 07:47 IMPRESSION: No acute findings. Head/Neck CTA 01/10/23 08:27 IMPRESSION: No arterial stenosis, occlusion or aneurysm. IMPRESSION: 1. No arterial occlusion or dissection. 2. 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 Normal left dominant vertebral artery. 3. No carotid stenosis. REFERENCES: NASCET CRITERIA. The degree of stenosis in the cervical segment of the internal carotid artery is based on NASCET criteria. Normal is no stenosis. Mild is less than 50% stenosis. Moderate is 50-69% stenosis. Severe is 70% to 99% stenosis. Total occlusion is no detectable patent lumen. ADDENDUM: 01/10/23 0926 THIS REPORT CONTAINS FINDINGS THAT MAY BE CRITICAL TO PATIENT CARE. The findings were verbally communicated via telephone conference with ODALIS LOGAN at 9:24 AM IMPERSONATOR CHARACTER on 01/10/2023. The findings were acknowledged and understood. Laboratory Results WBC 6.80 10^3/uL (3.29-11.43) 01/11/23 04:40 RBC 4.23 10^6/uL (3.85-5.65) 01/11/23 04:40 Hgb 13.30 g/dL (11.27-16.99) 01/11/23 04:40 Hct 40.9 % (37-53) 01/11/23 04:40 MCV 96.7 fl (82-101) 01/11/23 04:40 MCH 31.4 pg (27-33) 01/11/23 04:40 MCHC 32.5 g/dL (30-55) 01/11/23 04:40 RDW 13.2 % (12.1-15.1) 01/11/23 04:40 Plt Count 233 10^3/cmm (157-399) 01/11/23 04:40 MPV 10.0 fL (7.4-10.4) 01/11/23 04:40 Neut % (Auto) 55.6 % 01/11/23 04:40 Lymph % (Auto) 30.4 % 01/11/23 04:40 [place] % (Auto) 11.2 % 01/11/23 04:40 Eos % (Auto) 2.1 % 01/11/23 04:40 Baso % (Auto) 0.4 % 01/11/23 04:40 Neut # (Auto) 3.78 10^3/uL (1.8-7.7) 01/11/23 04:40 Lymph # (Auto) 2.1 10^3/uL (0.8-4.8) 01/11/23 04:40 [place] # (Auto) 0.8 10^3/uL (0.2-0.9) 01/11/23 04:40 Eos # (Auto) 0.1 10^3/uL (0.0-0.8) 01/11/23 04:40 Baso # (Auto) 0.0 10^3/uL (0.0-0.1) 01/11/23 04:40 Nucleated RBC % (auto) 0 % 01/11/23 04:40 Nucleated RBCs # 0.0 /100WBC 01/11/23 04:40 PT 12.30 SECONDS (12.1-14.9) 01/10/23 07:04 INR 0.89 (0.8-1.2) 01/10/23 07:04 APTT 27.9 SECONDS (23.9-36.7) 01/10/23 07:04 Fibrinogen 237 mg/dL (174-498) 01/11/23 04:40 Sodium 141 mmol/L (136-145) 01/11/23 04:40 Potassium 4.1 mmol/L (3.5-5.1) 01/11/23 04:40 Chloride 110 mmol/L (98-107) H 01/11/23 04:40 Carbon Dioxide 22 mmol/L (22-29) 01/11/23 04:40 Anion Gap 13.1 (5-19) 01/11/23 04:40 BUN 13 mg/dL (8-23) 01/11/23 04:40 Creatinine 0.8 mg/dL (0.7-1.2) 01/11/23 04:40 GFR Calculation Not Reportable 01/11/23 04:40 Glucose 97 mg/dL (65-115) 01/11/23 04:40 POC Glucose 92 mg/dL (70-110) 01/10/23 08:08 Estimat Average Glucose 105 01/11/23 04:40 Hemoglobin A1c 5.3 % (4.0-6.0) 01/11/23 04:40 Calculated Osmolality 292 mOsm/kg (285-295) 01/11/23 04:40 Calcium 8.4 mg/dL (8.5-10.5) L 01/11/23 04:40 Phosphorus 2.8 mg/dL (2.5-4.5) 01/11/23 04:40 Magnesium 2.1 mg/dL (1.7-2.3) 01/11/23 04:40 Total Bilirubin 0.8 mg/dL (0.15-1.2) 01/11/23 04:40 AST 13 U/L (0-40) 01/11/23 04:40 ALT 10 U/L (0-41) 01/11/23 04:40 Alkaline Phosphatase 51 U/L (40-130) 01/11/23 04:40 Troponin T Baseline 7 ng/L (0-15) 01/10/23 07:04 Troponin T 120 Minute 8.55 ng/L (0-15) 01/10/23 09:02 Delta Troponin T 1.55 ABS# (0-10) 01/10/23 09:02 Troponin T Hi Sens 6Hr 8.76 ng/L (0-15) 01/10/23 12:55 Troponin T Hi Sens 6Hr Delta 1.76 ng/L (0-12) 01/10/23 12:55 NT-Pro-B Natriuret Pep 36 pg/mL (0-125) 01/10/23 07:04 Total Protein 5.6 g/dL (6.6-8.7) L 01/11/23 04:40 Albumin 3.5 g/dL (3.5-5.2) 01/11/23 04:40 Globulin 2.1 g/dL (1.3-4.6) 01/11/23 04:40 Triglycerides 72 mg/dL (0-150) 01/11/23 04:40 Cholesterol 216 mg/dL (0-200) H 01/11/23 04:40 LDL Cholesterol, Calc 154 mg/dL (50-129) H 01/11/23 04:40 HDL Cholesterol 48 mg/dL (60-100) L 01/11/23 04:40 LDL/HDL Ratio 3.21 RATIO (0.00-3.22) 01/11/23 04:40 Cholesterol/HDL Ratio 4.50 mg/dL (1.0-5.00) 01/11/23 04:40 TSH 4.09 uIU/mL (0.27-4.20) 01/10/23 07:04 Urine Color Yellow (Yellow) 01/10/23 09:24 Urine Appearance Clear (CLEAR) 01/10/23 09:24 Urine pH 7 (5-7) 01/10/23 09:24 Ur Specific [place] 1.000 (1.005-1.030) L 01/10/23 09:24 Urine Protein Neg (Negative) 01/10/23 09:24 Urine Glucose (UA) Norm (Normal) 01/10/23 09:24 Urine Ketones Negative (Negative) 01/10/23 09:24 Urine Blood Neg (Negative) 01/10/23 09:24 Urine Nitrate Negative (Negative) 01/10/23 09:24 Urine Bilirubin Neg (Negative) 01/10/23 09:24 Urine Urobilinogen Norm mg/dL (Negative) 01/10/23 09:24 Ur Leukocyte Esterase Negative (Negative) 01/10/23 09:24 Urine Opiates Screen Negative ng/mL (Negative) 01/10/23 09:24 Ur Barbiturates Screen Negative ng/mL (Negative) 01/10/23 09:24 Ur Phencyclidine Scrn Negative ng/mL (Negative) 01/10/23 09:24 Ur Amphetamines Screen Negative ng/mL (Negative) 01/10/23 09:24 U Benzodiazepines Scrn Negative ng/mL (Negative) 01/10/23 09:24 Urine Cocaine Screen Negative ng/mL (Negative) 01/10/23 09:24 U Marijuana (THC) Screen Negative ng/mL (Negative) 01/10/23 09:24 Vitals Last Vital Signs Temp 98.2 F 01/11/23 08:00 Pulse 58 L 01/11/23 08:15 Resp 13 01/11/23 08:15 BP 135/67 01/11/23 08:15 Pulse Ox 95 01/11/23 08:15 O2 Del Method Room Air 01/10/23 11:09 Discharge Plan Discharge Patient Disposition: Home Condition: Stable Prescriptions: New clopidogrel [Plavix] 75 mg tablet 75 mg PO DAILY 21 Days Qty: 21 0RF aspirin 81 mg capsule 81 mg PO DAILY 30 Days Qty: 30 0RF clonidine HCl 0.1 mg tablet 0.1 mg PO DAILY PRN (Reason: hypertensive emergency) 30 Days Qty: 30 0RF Rx Instructions: SBP>150 or DBP>90 Continued Refresh Optive 0.5-0.9 % Drops 2 drp ophthalmic (eye) QAM Vitamin D3 125 mcg (5,000 unit) Tablet 125 mcg PO QAM Discharge Orders: Discharge Order (Routine); Ordered 01/11/23 Ordered By: Cb Beaulieu Other Ambulatory Orders: MCT/Event Monitor 30 Days (Routine) Timeframe: 1 Day Facility: [facility] - Location: Radiology Ordered By: Cb Beaulieu Referrals: Yulia Wild MD [Physician] - 4-7 days Lew Burk [Primary Care Provider] - Taco Bermeo MD [Physician] - 1 month Discharge Diet: Cardiac Discharge Activity: Resume usual activity Patient Instructions: Ischemic Stroke (DC), Stroke (DC) Activity Restrictions/Additional Instructions: ? I have discharged on aspirin 81 mg daily, please use that indefinitely, ? I discharged on Plavix 75 mg once daily, for 3 weeks stop thereafter, ? If you develop bloody or black stools please go to emergency room, ? Please speak to your primary care provider on possible Praluent or Repatha ? You can also talk to your primary care provider about GLP-1 analogs such as Ozempic ? Please wear event monitor as prescribed ? Please follow-up with neurology in 1 week, ? If you have any strokelike symptoms please go to emergency room, ? I have discharged you on clonidine 0.1 mg twice daily as needed, for systolic blood pressure greater than 150 or diastolic greater than 90, next?please follow-up with primary care provider for recheck blood pressure Discharge Attestations Time Spent in Discharge Care*: greater than 30 min Quality Metrics Clinical Quality Measures [ Cerebrovascular Accident { Contraindication to Antithrombotic: None; antithrombotic prescribed; Contraindication to Anticoagulation: Overlap treatment not indicated; Contraindication to Statin: Drug allergy;}. No reported AMI, CVA or VTE this stay] Coding Level of Care Code 97123 Total time (in minutes) for Discharge: 45 Diagnoses Left acute arterial ischemic stroke, MCA (middle cerebral artery) I63.512
[2023-01-11] MEDS: clopidogrel 75 mg Tablet PO (13:20)
[2023-01-11] MEDS: aspirin 81 mg EC Tablet PO (13:20)
== END 2023-01-11 14:08 | disposition home or self-care (01) | DRG 62 ==
LOC: ER 09:44 → ICU 09:45
PROVIDERS: Admitting Provider Family Medicine; Emergency Provider Family Medicine; PCP Family Medicine; Visit Provider Family Medicine
DX: I63.512 Cerebral infarction due to unspecified occlusion or stenosis of left middle cerebral artery (principal); G81.91 Hemiplegia, unspecified affecting right dominant side; R47.01 Aphasia; R29.810 Facial weakness; R29.706 NIHSS score 6; Z87.891 Personal history of nicotine dependence; R47.1 Dysarthria and anarthria; R47.81 Slurred speech; Z86.73 Personal history of transient ischemic attack (TIA), and cerebral infarction without residual deficits
CPT/HCPCS: 36415; 36416; 70450; 70496; 70498; 71045; 80053; 80061; 80306; 81003; 82962; 83036; 83735; 83880; 84100; 84443; 84484; 85025; 85384; 85610; 85730; 92507; 92523; 92610; 93005; 93306; 94664; 96365; 96376; 97116; 97161; 97165; 97530; 99291; C9113; J3101; J7030; Q9967

== ENCOUNTER 2023-01-16 14:20 | Emergency (ER) | payer OTHER, SELFPAY ==
[2023-01-16 14:28] VITALS: BP 139/72; PULSE 53; RESP 15; O2SAT 95
--- NOTE | 2023-01-16 14:42 | W.ED.GENADLT ---
HPI - General Adult General: Chief complaint: General Medical Stated complaint: high bp,previous stroke week ago Time Seen by Provider: 01/16/23 14:39 History of Present Illness: 72-year-old male presents emergency department with complaints of intermittent high blood pressure. He states he was recently diagnosed with a mini stroke and was discharged from the hospital 4 days ago. He states he was told at the time of discharge that his blood pressure should never get over 150 systolic pressure he states he has been extremely concerned about it since then because it has intermittently went above that to a systolic of 160. He states that his has been taking his blood pressure approximately every 30 minutes to 1 hour and she is very worried about it being elevated. He denies headache dizziness or lightheaded feeling. He denies any additional neurological deficits or concerns at present. He denies chest pain or shortness of breath. Associated symptoms: Deny chest pain, dyspnea, headache(s) or palpitations Review of Systems General: Reports: 10 or more systems reviewed and unremarkable except in HPI and below Card: Denies: chest pain, palpitations, irregular heart rhythm or edema Resp: Denies: dyspnea, productive cough, non-productive cough or wheezing Neuro: Denies: headache(s) PFSH ED PFSH: Medical History (Updated 01/16/23 @ 15:52 by Waqas Be MD) No pertinent past medical history Surgical History (Updated 01/10/23 @ 12:45 by Cb Beaulieu MD) History of chest tube placement Family History (Updated 01/10/23 @ 12:46 by Cb Beaulieu MD) Brother Colon cancer Social History (Updated 01/10/23 @ 12:46 by Cb Beaulieu MD) Smoking and tobacco/nicotine status: never used tobacco/nicotine Alcohol intake: never Substance/Drug Use: never Physical Exam Narrative: EXAM NARRATIVE: Constitutional: the patient appears well nourished and with normal development. Vital signs reviewed as documented. HENMT: Normocephalic, atraumatic. Extermal ears with normal appearance without drainage. Nose without drainage, normal appearance. Mucus membranes moist. Neck is supple, No jugular venous distension, trachea is midline, no appreciable carotid bruits. No lymphadenopathy. No meningeal signs. Flexion, extension and lateral rotation is without pain. Eyes: Pupils are equal, round, reactive to light and accommodation. No scleral icterus. Extra-ocular movement are intact. Thorax is symmetrical and with equal rise and fall with respirations. Resp: Lungs are clear to auscultation. No wheezes, rales, crackles or ronchi at present. Cardio: Regular rate and rhythm. Positive S1, S2. No appreciable murmurs, rubs or gallops. GI: Abdominal exam reveals normal bowel sounds to all quadrants. No organomegaly. No obvious palpable masses noted. No hepatomegally appreciated. Soft, nontender to palpation. Extremity: Extremities are non-edematous and both femoral and pedal pulses are 2+ and equal bilaterally. Moves all extremities well, sensation in all extremities. Neuro: Alert and oriented x4, person, place, time and situation. Cranial nerves II through XII are grossly intact, there is no focal neurological deficits that I can appreciate at present. Motor strength in the upper and lower extremities are equal and bilateral 5/5. Psych: Cooperative, calm, normal thought process, appropriate judgment. Skin: No lesions, rashes. No gross abnormalities noted. Back: Symmetrical, no obvious deformity, No CVA tenderness Course Vital Signs: Vital signs: Vital Signs Pulse Rate 53 L 01/16/23 14:28 Respiratory Rate 15 01/16/23 14:28 Blood Pressure 139/72 01/16/23 14:28 Pulse Oximetry 95 01/16/23 14:28 Oxygen Delivery Me thod Room Air 01/16/23 14:28 MDM - General Adult Medical Decision Making Patient's blood pressure appears within acceptable range upon presentation to the emergency department his current blood pressure is 139/72 heart rate 53 and regular. He does not have any neurological symptoms I will obtain a twelve-lead EKG, CBC and CMP educated the patient extensively regarding the consistently maintained/elevated blood pressure and advised him that all blood pressure fluctuates and as long as it does not remain significantly elevated that he can continue to keep his appointments as previously scheduled. Differential Diagnosis Anxiety, uncontrolled hypertension, Medical Records I reviewed the patient's medical records. Lab Data I reviewed the patient's lab results. 01/16/23 14:58 01/16/23 14:58 Laboratory Results WBC 5.65 10^3/uL (3.29-11.43) 01/16/23 14:58 RBC 4.37 10^6/uL (3.85-5.65) 01/16/23 14:58 Hgb 13.80 g/dL (11.27-16.99) 01/16/23 14:58 Hct 42.2 % (37-53) 01/16/23 14:58 MCV 96.6 fl (82-101) 01/16/23 14:58 MCH 31.6 pg (27-33) 01/16/23 14:58 MCHC 32.7 g/dL (30-55) 01/16/23 14:58 RDW 12.9 % (12.1-15.1) 01/16/23 14:58 Plt Count 230 10^3/cmm (157-399) 01/16/23 14:58 MPV 9.8 fL (7.4-10.4) 01/16/23 14:58 Neut % (Auto) 50.9 % 01/16/23 14:58 Lymph % (Auto) 32.6 % 01/16/23 14:58 [place] % (Auto) 14.9 % 01/16/23 14:58 Eos % (Auto) 0.9 % 01/16/23 14:58 Baso % (Auto) 0.5 % 01/16/23 14:58 Neut # (Auto) 2.88 10^3/uL (1.8-7.7) 01/16/23 14:58 Lymph # (Auto) 1.8 10^3/uL (0.8-4.8) 01/16/23 14:58 [place] # (Auto) 0.8 10^3/uL (0.2-0.9) 01/16/23 14:58 Eos # (Auto) 0.1 10^3/uL (0.0-0.8) 01/16/23 14:58 Baso # (Auto) 0.0 10^3/uL (0.0-0.1) 01/16/23 14:58 Nucleated RBC % (auto) 0 % 01/16/23 14:58 Nucleated RBCs # 0.0 /100WBC 01/16/23 14:58 Sodium 137 mmol/L (136-145) 01/16/23 14:58 Potassium 4.3 mmol/L (3.5-5.1) 01/16/23 14:58 Chloride 105 mmol/L (98-107) 01/16/23 14:58 Carbon Dioxide 27 mmol/L (22-29) 01/16/23 14:58 Anion Gap 9.3 (5-19) 01/16/23 14:58 BUN 14 mg/dL (8-23) 01/16/23 14:58 Creatinine 1.0 mg/dL (0.7-1.2) 01/16/23 14:58 GFR Calculation Not Reportable 01/16/23 14:58 Glucose 91 mg/dL (65-115) 01/16/23 14:58 Calculated Osmolality 284 mOsm/kg (285-295) L 01/16/23 14:58 Calcium 9.3 mg/dL (8.5-10.5) 01/16/23 14:58 Total Bilirubin 0.7 mg/dL (0.15-1.2) 01/16/23 14:58 AST 12 U/L (0-40) 01/16/23 14:58 ALT 10 U/L (0-41) 01/16/23 14:58 Alkaline Phosphatase 58 U/L (40-130) 01/16/23 14:58 Total Protein 6.3 g/dL (6.6-8.7) L 01/16/23 14:58 Albumin 3.9 g/dL (3.5-5.2) 01/16/23 14:58 Globulin 2.4 g/dL (1.3-4.6) 01/16/23 14:58 No radiology studies performed this visit Discharge Plan Discharge Patient Disposition: Home Clinical Impression: Hypertension Condition: Stable Prescriptions: No Action Aspir-81 81 mg Tablet,Delayed Release (Dr/Ec) 81 mg PO DAILY Refresh Optive 0.5-0.9 % Drops 2 drp ophthalmic (eye) QAM cholecalciferol (vitamin D3) [Vitamin D3] 125 mcg (5,000 unit) Tablet 125 mcg PO QAM clopidogrel [Plavix] 75 mg tablet 75 mg PO DAILY 21 Days Qty: 21 0RF clonidine HCl 0.1 mg tablet 0.1 mg PO DAILY PRN (Reason: hypertensive emergency) 30 Days Qty: 30 0RF Rx Instructions: SBP>150 or DBP>90 Discharge Orders: Discharge ED (Routine); Ordered 01/16/23 Ordered By: Waqas Be Referrals: Martha Cook MD [Primary Care Provider] - Discharge Diet: Advance as tolerated Discharge Activity: Resume usual activity Patient Instructions: Opioid Safety, Pain Management Activity Restrictions/Additional Instructions: Activity Restrictions/Additional Instructions: Thank you for choosing [facility] for your healthcare needs today. Please realize that you were seen in the Emergency Department and that we are providing you with an emergency medical screening exam and this may not be complete and all inclusive of all the testing and or medical work-up that you may need to determine your ailment or severity of your illness. It is very important that you follow-up as instructed with your Primary care provider or Specialist for additional evaluation and to discuss your medical treatment plan. You may return to the Emergency Department should you have concerns or if your condition changes or worsens in any way. Coding Level of Care Code ED Public Aid Eligibility Assistant for Minoo Luo
--- NOTE | 2023-01-16 14:46 | ECG_ITS ---
[facility] Test Date: 2023-01-16 Pat Name: Pawel Liu Department: Room: Gender: Male Office Services Associate: : 1950 Requested By: Waqas Be Order Number: [id number] Casarez MD: Madonna Rangel M.D. Measurements Intervals [place] Rate: 47 P: 60 TX: 224 QRS: 28 QRSD: 102 T: 47 QT: 400 QTc: 354 Interpretive Statements SINUS BRADYCARDIA WITH FIRST DEGREE AV BLOCK Compared to ECG 01/10/2023 13:43:08 First degree AV block now present Intraventricular conduction delay no longer present T-wave abnormality no longer present Electronically Signed On 01-17-2023 13:47:38 ICE CREAM MAN by Madonna Rangel M.D. [id number]
--- NOTE | 2023-01-16 15:05 | PC.PHAR ---
PT IS [facility] LOCATING A MED LIST
[2023-01-16 15:22] LABS: Basophils % 0.5 %; Eosinophils # 0.1 10^3/uL (0.0-0.8); Eosinophils % 0.9 %; Hematocrit 42.2 % (37-53); Lymphocytes # 1.8 10^3/uL (0.8-4.8); Lymphocytes % 32.6 %; Mean Corpuscular HGB Conc 32.7 g/dL (30-55); Mean Corpuscular Hemoglobin 31.6 pg (27-33); Mean Corpuscular Volume 96.6 fl (82-101); Mean Platelet Volume 9.8 fL (7.4-10.4); Monocytes # 0.8 10^3/uL (0.2-0.9); Monocytes % 14.9 %; Neutrophils # 2.88 10^3/uL (1.8-7.7); Neutrophils % 50.9 %; Nucleated Red Blood Cells % 0 %; Platelet Count 230 10^3/cmm (157-399); Red Blood Count 4.37 10^6/uL (3.85-5.65); Red Cell Distribution Width 12.9 % (12.1-15.1); White Blood Count 5.65 10^3/uL (3.29-11.43)
[2023-01-16 15:36] VITALS: BP 110/71; PULSE 67; O2SAT 93
[2023-01-16 15:39] LABS: Alanine Aminotransferase 10 U/L (0-41); Albumin Level 3.9 g/dL (3.5-5.2); Alkaline Phosphatase 58 U/L (40-130); Anion Gap 9.3 (5-19); Aspartate Amino Transferase 12 U/L (0-40); Blood Urea Nitrogen 14 mg/dL (8-23); Calcium 9.3 mg/dL (8.5-10.5); Carbon Dioxide 27 mmol/L (22-29); Chloride 105 mmol/L (98-107); Globulin 2.4 g/dL (1.3-4.6); Glucose 91 mg/dL (65-115); Osmolality Calculated 284 mOsm/kg (285-295); Potassium 4.3 mmol/L (3.5-5.1); Sodium 137 mmol/L (136-145); Total Bilirubin 0.7 mg/dL (0.15-1.2); Total Protein 6.3 g/dL (6.6-8.7)
[2023-01-16 16:04] VITALS: BP 119/65; PULSE 43; RESP 16; O2SAT 94
== END 2023-01-16 16:10 | disposition home or self-care (01) ==
PROVIDERS: Emergency Provider Internal Medicine; PCP Family Medicine
DX: I10 Essential (primary) hypertension (principal); Z79.82 Long term (current) use of aspirin; Z79.02 Long term (current) use of antithrombotics/antiplatelets
CPT/HCPCS: 36415; 80053; 85025; 93005; 93010; 99284

== ENCOUNTER → 2023-01-20 10:38 | Outpatient (BNVA) | payer OTHER, MEDICARE, SELFPAY | PROVIDERS: PCP Family Medicine; Visit Provider Internal Medicine Cardiovascular Disease | DX: Z86.73 Personal history of transient ischemic attack (TIA), and cerebral infarction without residual deficits (principal); I10 Essential (primary) hypertension; E78.5 Hyperlipidemia, unspecified; G47.34 Idiopathic sleep related nonobstructive alveolar hypoventilation; R94.31 Abnormal electrocardiogram [ECG] [EKG]; I27.20 Pulmonary hypertension, unspecified | CPT/HCPCS: 99204 ==

== ENCOUNTER → 2023-02-03 12:26 | Outpatient (BNVA) | payer OTHER, MEDICARE, SELFPAY | PROVIDERS: PCP Family Medicine; Visit Provider Specialist | DX: I63.512 Cerebral infarction due to unspecified occlusion or stenosis of left middle cerebral artery (principal); R94.31 Abnormal electrocardiogram [ECG] [EKG]; Z79.82 Long term (current) use of aspirin | CPT/HCPCS: 99205 ==

== ENCOUNTER 2023-04-14 20:00 | Outpatient (CLI) | payer OTHER, SELFPAY | END 2023-04-14 20:01 | disposition home or self-care (01) | LOC: SLEEP 04-15 06:24 | PROVIDERS: PCP Family Medicine; Visit Provider Family Medicine | DX: G47.33 Obstructive sleep apnea (adult) (pediatric) (principal); R09.02 Hypoxemia | CPT/HCPCS: 95810 ==

== ENCOUNTER → 2023-04-21 10:44 | Outpatient (BNVA) | payer OTHER, SELFPAY | PROVIDERS: PCP Family Medicine; Visit Provider Internal Medicine Cardiovascular Disease | DX: Z86.73 Personal history of transient ischemic attack (TIA), and cerebral infarction without residual deficits (principal); I10 Essential (primary) hypertension; E78.5 Hyperlipidemia, unspecified; R94.31 Abnormal electrocardiogram [ECG] [EKG]; I27.20 Pulmonary hypertension, unspecified | CPT/HCPCS: 99214 ==

== ENCOUNTER 2023-07-21 20:00 | Outpatient (CLI) | payer OTHER, SELFPAY | END 2023-07-21 20:01 | disposition home or self-care (01) | LOC: SLEEP 07-22 05:13 | PROVIDERS: PCP Family Medicine; Visit Provider Family Medicine | DX: G47.33 Obstructive sleep apnea (adult) (pediatric) (principal); Z99.89 Dependence on other enabling machines and devices | CPT/HCPCS: 95811 ==

== ENCOUNTER → 2023-10-18 10:33 | Outpatient (BNVA) | payer OTHER, SELFPAY | PROVIDERS: PCP Family Medicine; Visit Provider Nurse Practitioner Family | DX: I10 Essential (primary) hypertension (principal) | CPT/HCPCS: 99213 ==

== ENCOUNTER → 2024-02-25 09:51 | Outpatient (BNVA) | payer OTHER, SELFPAY | PROVIDERS: PCP Family Medicine; Visit Provider Emergency Medicine | DX: R39.9 Unspecified symptoms and signs involving the genitourinary system (principal) | CPT/HCPCS: 81000; 87086 ==